=== PATIENT | female | born 1985 | race Caucasian/White ===

== ENCOUNTER → 2019-09-09 14:31 | Outpatient (CLI) | payer BC, SELFPAY ==
[2019-09-11 19:26] LABS: Estradiol 88.1 pg/mL (.)
[2019-09-13 19:00] LABS: Testosterone, Total, LC/MS 35.4 ng/dL (10.0-55.0)
[2019-09-14 17:18] LABS: Testosterone,Free 0.7 pg/mL (0.0-4.2)
== END ==
PROVIDERS: PCP Family Medicine; Visit Provider Obstetrics & Gynecology
DX: N95.1 Menopausal and female climacteric states (principal)
CPT/HCPCS: 36415; 82670; 84402; 84403

== ENCOUNTER → 2019-12-13 16:23 | Outpatient (CLI) | payer BC, SELFPAY ==
[2019-12-17 17:11] LABS: Testosterone, Total, LC/MS 53.8 ng/dL (10.0-55.0); Testosterone,Free 0.8 pg/mL (0.0-4.2)
== END ==
PROVIDERS: Visit Provider Obstetrics & Gynecology
DX: N95.1 Menopausal and female climacteric states (principal)
CPT/HCPCS: 36415; 82670; 84402; 84403

== ENCOUNTER → 2020-01-04 12:55 | Outpatient (CLI) | payer BC, SELFPAY | PROVIDERS: Visit Provider Obstetrics & Gynecology | DX: N95.0 Postmenopausal bleeding (principal) | CPT/HCPCS: 36415; 82670 ==

== ENCOUNTER → 2020-03-07 13:18 | Outpatient (CLI) | payer BC, SELFPAY ==
[2020-03-13 16:29] LABS: Testosterone, Total, LC/MS 88.5 ng/dL (10.0-55.0)
[2020-03-13 18:08] LABS: Testosterone,Free 2.1 pg/mL (0.0-4.2)
== END ==
PROVIDERS: Visit Provider Obstetrics & Gynecology
DX: N95.1 Menopausal and female climacteric states (principal)
CPT/HCPCS: 36415; 82670; 84402; 84403

== ENCOUNTER 2020-06-05 13:12 | Emergency (ER) | payer BC, SELFPAY ==
[2020-06-05 13:20] VITALS: BP 124/68; PULSE 71; RESP 20; TEMP 36.2; O2SAT 96; BMI 21.9
[2020-06-05 13:47] VITALS: BP 124/68; PULSE 71; RESP 20; TEMP 36.2; O2SAT 96
--- NOTE | 2020-06-05 13:55 | HMH.EDUTC ---
[facility] [place] Clinical Impression: Exposure to COVID-19 virus Disposition: Home, Self-Care Condition on Discharge: Good Instructions: DI for COVID-19 (Suspected or Confirmed ), Preventing the Spread of Coronavirus Discharge Instructions Additional Instructions: Drink plenty of fluids. Take tylenol for pain or fever. Return if you begin to have difficulty breathing. Follow up with your regular doctor. GO TO THE ER FOR ANY WORSENING SYMPTOMS Referrals: Edinson Lamas MD [Primary Care Provider] - Time of Disposition: 14:00 Medical Decision Making - Medical Records Medical records reviewed: No: I reviewed the patient's medical records. - Willie Inquiry Pt receiving controlled substance: No Vital Signs: 06/05/20 13:20 06/05/20 13:47 Temperature 97.1 F L 97.1 F L Temperature Source Oral Pulse Rate 71 Pulse Rate [Right Brachial] 71 Respiratory Rate 20 20 Blood Pressure 124/68 Blood Pressure [Right Arm] 124/68 Blood Pressure Mean [Right Arm] 86 Blood Pressure Source [Right Arm] Automatic Cuff Blood Pressure Position [Right Arm] Sitting 02 Sat by Pulse Oximetry 96 Oxygen Delivery Method Room Air Orders (Tests/Meds): ORDERS Category Date Time Status Covid-19 Nasal PCR Sendout [facility] Stat Lab 06/05/20 13:30 [place] [facility] [place] - General Stated complaint: covid test Time Seen by Provider: 06/05/20 13:59 Mode of Arrival: Ambulatory Source of Information: Patient Limitations: No Limitations Description of Symptoms (Recalled from Triage Doc. by RN): COVID TEST D/T SON BEING EXPOSED. DENIES SYMPTOMS HEENT Symptoms (Recalled from RN notes): No Resp Symptoms (Recalled from RN notes): No Skin Symptoms (Recalled from RN notes): No MS Symptoms (Recalled from RN notes): No Functional Status (Recalled from RN notes): WNL - History of Present Illness Provider Complaint: Her son has been exposed to covid-19. She has been around her son a lot. She has not had any symptoms so far. - Related Data Home Medications Medication Instructions Recorded Confirmed sertraline 100 mg tablet 100 mg PO DAILY 03/29/20 03/29/20 Previous Rx's Medication Instructions Recorded phenazopyridine 100 mg tablet 100 mg PO TID PRN 0 Days #6 tab 03/29/20 sulfamethoxazole 800 1 tab PO Q12H 10 Days #20 tab 03/29/20 mg-trimethoprim 160 mg tablet Allergies Allergy/AdvReac Type Severity Reaction Status Date / Time azithromycin Allergy Verified 03/29/20 13:08 - Worker's Comp Is this a Worker's Comp case?: No [facility] History - Hepatitis A Screen Drug use history?: No High risk sexual behaviors?: No History of sexually transmitted infection?: No Currently employed?: No Childcare worker?: No Do you have indoor plumbing?: Yes Do you have electricity?: Yes Attestation statement:: This patient has been screened for Hepatitis A risk factors. I have reviewed the patient's past medical history: Yes Medical History: Reports:: Urinary Tract Infection Other Surgeries: Yes: Hysterectomy-Total - Social History Smoking Status: Current every day smoker Tobacco Type: cigarettes (1/2 pack per day) Alcohol Intake: never Substance Use Type: denies use Occupational Status: employed Household Members: spouse, children Family Hx:: Non-contributory ROS Obtained: Yes All systems reviewed & no additional complaints - Constitutional Constitutional: Reports system reviewed and no additional complaints, except as docu - Eyes Eyes: Reports system reviewed and no additional complaints, except as docu - ENT Ears, Nose, Mouth, and Throat: Reports system reviewed and no additional complaints, except as docu - Cardiovascular Cardiovascular: Reports system reviewed and no additional complaints, except as docu - Respiratory Respiratory: Reports system reviewed and no additional complaints, except as docu - Gastrointestinal Gastrointestingal: Reports: system reviewed and no additional complai
[2020-06-06 10:32] LABS: Covid-19 Nasal PCR Sendout P&C Negative
== END 2020-06-05 14:10 | disposition home or self-care (01) ==
PROVIDERS: Emergency Provider Nurse Practitioner Family; PCP Family Medicine
DX: Z20.822 Contact with and (suspected) exposure to COVID-19 (principal)
CPT/HCPCS: 99202; G0463; U0004

== ENCOUNTER 2021-01-05 10:51 | Emergency (ER) | payer BC, SELFPAY ==
[2021-01-05 11:50] VITALS: BP 129/80; PULSE 68; RESP 18; TEMP 36.8; O2SAT 97; BMI 22.3
--- NOTE | 2021-01-05 12:06 | HMH.EDUTC ---
[facility] [place] Disposition Clinical Impression: Exposure to COVID-19 virus, Strep throat Sinusitis Qualifiers: Sinusitis location: unspecified location Chronicity: acute Recurrence: non-recurrent Qualified Code(s): J01.90 - Acute sinusitis, unspecified Disposition: Home, Self-Care Condition on Discharge: Good Instructions: DI for Strep Throat, DI for COVID-19 (Suspected or Confirmed ), Preventing the Spread of Coronavirus Discharge Instructions Additional Instructions: Drink plenty of fluids. Take tylenol or ibuprofen for pain or fever. Take the medications as directed. Follow up with your regular doctor. GO TO THE ER FOR ANY WORSENING SYMPTOMS Quarantine until you know the results of your covid-19 test. If it is positive, the health department should call you and give you further instructions about your length of Quarantine and other things. Notify your school or workplace of your results and follow their instructions regarding return to work/school. Prescriptions: Amoxicillin/Potassium Clav [Augmentin 875-125 Tablet] 1 tab PO Q12H 10 Days #20 tab Transmission Status: Received by [facility] #[id number] methylPREDNISolone [Medrol] 4 mg PO DIRECTED 6 Days #21 tab.ds.pk Transmission Status: Received by [facility] #[id number] Benzonatate [Tessalon Perle 100mg Cap] 100 mg PO TIDP PRN #30 cap PRN Reason: Cough Transmission Status: Received by [facility] #[id number] Referrals: Edinson Lamas MD [Primary Care Provider] - Forms: Work/School Release Time of Disposition: 12:40 Medical Decision Making - Medical Records Medical records reviewed: No: I reviewed the patient's medical records. - Willie Inquiry Pt receiving controlled substance: No Vital Signs: 01/05/21 11:50 01/05/21 12:35 Temperature 98.3 F 98.3 F Temperature Source Oral Pulse Rate 68 Pulse Rate [Right Brachial] 68 Respiratory Rate 18 18 Blood Pressure 129/80 Blood Pressure [Right Arm] 129/80 Blood Pressure Mean [Right Arm] 96 Blood Pressure Source [Right Arm] Automatic Cuff Blood Pressure Position [Right Arm] Sitting 02 Sat by Pulse Oximetry 97 Oxygen Delivery Method Room Air - Lab Data Lab results reviewed: Yes: I reviewed the patient's lab results. Lab Results 01/05/21 12:10: Strep [facility] Positive A 01/05/21 12:36: Strep Scn [facility] Positive [facility] [place] HPI - General Stated complaint: covid test Time Seen by Provider: 01/05/21 12:06 - History of Present Illness Provider Complaint: She c/o sore throat, chilling, low grade fever, cough, and sinus congestion for the past 2 days. She works at the school in the cafeteria. She has not been vaccinated against covid-19. She denies any shortness of breath. - Related Data Home Medications Medication Instructions Recorded Confirmed sertraline 100 mg tablet 100 mg PO DAILY 03/29/20 03/29/20 Previous Rx's Medication Instructions Recorded phenazopyridine 100 mg tablet 100 mg PO TID PRN 0 Days #6 tab 03/29/20 sulfamethoxazole 800 1 tab PO Q12H 10 Days #20 tab 03/29/20 mg-trimethoprim 160 mg tablet Amoxicillin/Potassium Clav 1 tab PO Q12H 10 Days #20 tab 01/05/21 [Augmentin 875-125 Tablet] Benzonatate [Tessalon Perle 100mg 100 mg PO TIDP PRN #30 cap 01/05/21 Cap] methylPREDNISolone [Medrol] 4 mg PO DIRECTED 6 Days #21 01/05/21 tab.ds.pk Allergies Allergy/AdvReac Type Severity Reaction Status Date / Time azithromycin Allergy Verified 03/29/20 13:08 [facility] History - Hepatitis A Screen Attestation statement:: This patient has been screened for Hepatitis A risk factors. I have reviewed the patient's past medical history: Yes Medical History: Reports:: Urinary Tract Infection Other Surgeries: Yes: Hysterectomy-Total - Social History Smoking Status: Current every day smoker Tobacco Type: cigarettes (1/2 pack per day) Alcohol Intake: never Substance Use Type: denies use Occupational Status:
[2021-01-05 12:24] LABS: UTC Strep Screen (Rapid) Positive (Negative)
[2021-01-05 12:35] VITALS: BP 129/80; PULSE 68; RESP 18; TEMP 36.8; O2SAT 97
[2021-01-05 19:05] LABS: UTC Strep Screen (Rapid) Positive (Negative)
== END 2021-01-05 12:43 | disposition home or self-care (01) ==
PROVIDERS: Emergency Provider Nurse Practitioner Family; PCP Family Medicine
DX: J01.90 Acute sinusitis, unspecified (principal); Z20.822 Contact with and (suspected) exposure to COVID-19; F17.210 Nicotine dependence, cigarettes, uncomplicated
CPT/HCPCS: 87880; 99203; G0463; U0003

== ENCOUNTER → 2021-02-07 13:53 | Outpatient (CLI) | payer BC, SELFPAY ==
[2021-02-07 14:20] LABS: Adenovirus,PCR Not Detected (NotDetected); Bordetella Pertussis Not Detected (NotDetected); Chlamydophila Pneumoniae, PCR Not Detected (NotDetected); Coronavirus 19, PCR Not Detected (NotDetected); Coronavirus 229E Not Detected (NotDetected); Coronavirus NL63 Not Detected (NotDetected); Coronavirus OC43 Not Detected (NotDetected); Coronovirus HKU1,PCR Not Detected (NotDetected); Human Metapneumovirus Not Detected (NotDetected); Influenza A, PCR Not Detected (NotDetected); Influenza AH1, 2009 Not Detected (NotDetected); Influenza AH1, PCR Not Detected (NotDetected); Influenza AH3,PCR Not Detected (NotDetected); Influenza B, PCR Not Detected (NotDetected); Mycoplasma Pneumoniae, PCR Not Detected (NotDetected); Parainfluenza 1, PCR Not Detected (NotDetected); Parainfluenza 2, PCR Not Detected (NotDetected); Parainfluenza 3, PCR Not Detected (NotDetected); Parainfluenza 4, PCR Not Detected (NotDetected); Respiratory Syncytial Virus Not Detected (NotDetected)
[2021-02-07 14:48] LABS: Basophils % 0.4 % (0.1-2.0); Eosinophils # 0.1 K/mm3 (0.0-0.4); Eosinophils % 1.3 % (0.1-12.0); Hematocrit 42.4 % (37.0-47.0); Hemoglobin 14.3 g/dL (12.2-16.2); Lymphocytes # 3.4 K/mm3 (0.7-4.5); Lymphocytes % 34.3 % (10-50); Mean Corpuscular HGB Conc 33.7 g/dL (31.8-35.4); Mean Corpuscular Hemoglobin 31.2 pg (27.0-31.2); Mean Corpuscular Volume 92.6 fl (81-99); Mean Platelet Volume 8.6 fl (7.4-10.4); Monocytes # 0.7 K/mm3 (0.1-1.0); Monocytes % 6.8 % (1.7-9.3); Neutrophils # 5.7 K/mm3 (1.8-7.8); Neutrophils % 57.3 % (37.0-80.0); Platelet Count 215 K/mm3 (142-424); Red Blood Count 4.58 M/mm3 (4.20-5.40); Red Cell Distribution Width 11.9 % (11.5-17.5); White Blood Count 9.9 K/mm3 (4.8-10.8)
[2021-02-07 20:40] LABS: Rhinovirus/Enterovirus Detected (NotDetected)
== END ==
PROVIDERS: PCP Nurse Practitioner Family; Visit Provider Nurse Practitioner Family
DX: Z20.822 Contact with and (suspected) exposure to COVID-19 (principal); B34.1 Enterovirus infection, unspecified
CPT/HCPCS: 36415; 85025; 87581; 87632; 87798; C9803; U0003; U0005

== ENCOUNTER → 2021-11-06 14:20 | Outpatient (CLI) | payer BC, SELFPAY ==
[2021-11-06 14:29] LABS: Basophils # 0.1 K/mm3 (0-0.2); Basophils % 1.1 % (0.1-2.0); Eosinophils # 0.1 K/mm3 (0.0-0.4); Eosinophils % 1.4 % (0.1-12.0); Hematocrit 47.2 % (37.0-47.0); Hemoglobin 14.9 g/dL (12.2-16.2); Lymphocytes # 2.6 K/mm3 (0.7-4.5); Lymphocytes % 27.2 % (10-50); Mean Corpuscular HGB Conc 31.5 g/dL (31.8-35.4); Mean Corpuscular Hemoglobin 30.4 pg (27.0-31.2); Mean Corpuscular Volume 96.6 fl (81-99); Monocytes # 0.6 K/mm3 (0.1-1.0); Monocytes % 5.7 % (1.7-9.3); Neutrophils # 6.3 K/mm3 (1.8-7.8); Neutrophils % 64.6 % (37.0-80.0); Platelet Count 206 K/mm3 (142-424); Red Blood Count 4.89 M/mm3 (4.20-5.40); Red Cell Distribution Width 12.7 % (11.5-17.5); White Blood Count 9.7 K/mm3 (4.8-10.8)
[2021-11-06 15:08] LABS: Alanine Aminotransferase 13 U/L (12-78); Albumin Level 3.9 g/dl (3.5-5.0); Albumin/Globulin Ratio 1.3 (1.1-1.8); Alkaline Phosphatase 81 U/L (38-126); Anion Gap 9.2 mEq/L (5-15); Aspartate Amino Transferase 20 U/L (14-36); Blood Urea Nitrogen 15 mg/dl (7-17); Calcium 9.1 mg/dl (8.4-10.2); Carbon Dioxide 28 mmol/L (22.0-30.0); Chloride 107 mmol/L (98-107); Chol/HDL Ratio 5.8 (1-3.5); Cholesterol 237 mg/dl (140-200); Estimated Glomerular Filt Rate 95 ml/min (>60); GFR (African American) 115 ML/MIN (>60); Glucose 97 mg/dl (74-100); HDL Cholesterol 41 mg/dl (40-60); Potassium 4.2 mmoL/L (3.5-5.1); Sodium 140 mmol/L (136-145); Total Protein,Serum 6.9 g/dl (6.3-8.2); Triglycerides 123 mg/dl (30-150); VLDL Cholesterol 25 mg/dL (0-40)
[2021-11-06 15:17] LABS: Bilirubin,Total 0.1 mg/dl (0.2-1.3)
[2021-11-06 15:19] LABS: Direct LDL Cholesterol 160.52 mg/dL (100-129)
[2021-11-06 15:23] LABS: 25-OH Vitamin D, Total 27.7 ng/mL (30-100)
[2021-11-06 15:24] LABS: T4 (Thyroxine) 10.5 ug/dl (5.53-11.0)
== END ==
PROVIDERS: PCP Nurse Practitioner Family; Visit Provider Nurse Practitioner Family
DX: E78.5 Hyperlipidemia, unspecified (principal); E55.9 Vitamin D deficiency, unspecified; R53.81 Other malaise; R53.83 Other fatigue; Z79.899 Other long term (current) drug therapy
CPT/HCPCS: 80053; 80061; 82306; 84436; 84443; 85025

== ENCOUNTER → 2022-01-18 11:27 | Outpatient (CLI) | payer BC, SELFPAY ==
[2022-01-20 08:47] LABS: Estradiol 45.4 pg/mL (.)
[2022-01-20 09:19] LABS: FSH 28.2 mIU/mL (.)
[2022-01-23 22:07] LABS: Testosterone,Free 1.4 pg/mL (0.0-4.2)
== END ==
PROVIDERS: Visit Provider Obstetrics & Gynecology
DX: N95.1 Menopausal and female climacteric states (principal); Z79.890 Hormone replacement therapy
CPT/HCPCS: 36415; 82670; 83001; 84402; 84403

== ENCOUNTER 2024-02-03 13:47 | Emergency (ER) | payer BC, SELFPAY ==
[2024-02-03 14:28] VITALS: BP 153/90; PULSE 88; RESP 16; TEMP 36.7; O2SAT 98; BMI 26.5
--- NOTE | 2024-02-03 14:34 | ED_ITS ---
Discharge Plan Disposition Patient Disposition: Home, Self-Care Condition: Good Prescriptions Prescriptions: New benzonatate 100 mg capsule 100 mg PO TID PRN (Reason: cough) Qty: 30 0RF methylprednisolone [Medrol (Cruz)] 4 mg tablets,dose pack See Rx Instructions .Route .COMPLEX 6 Days Qty: 21 0RF Rx Instructions: taper pack; amoxicillin-pot clavulanate 875-125 mg Tablet 1 tab PO Q12H Qty: 20 0RF guaifenesin [Mucinex] 600 mg tablet extended release 12hr 600 mg PO BID PRN (Reason: cough) Qty: 20 0RF methocarbamol 500 mg tablet 500 mg PO TID PRN (Reason: muscle spasm) Qty: 12 0RF No Action Vraylar 1.5 mg capsule 1.5 mg PO DAILY Qty: 30 2RF cholecalciferol (vitamin D3) 50 mcg (2,000 unit) capsule 50 mcg PO DAILY Qty: 30 4RF cholecalciferol (vitamin D3) 1,250 mcg (50,000 unit) tablet 1,250 mcg PO WEEKLY Qty: 7 2RF Referrals Follow up/Referrals: Provider,Referral, MD [Primary Care Provider] - See instructions Activity Restrictions/Add. Instructions Additional Instructions/Restrictions: *Monitor Temp, Over the counter Motrin or Tylenol as directed/as needed Tylenol every 4 hours and Motrin every 6 hours (as long as your family doctor has told you that you can take it) for fever or pain. and straight to ER if unable to lower temp less than 101.0 after medication given *Warm salt water gargles may help to soothe the throat *Throat Lozenges? *Warm fluids like tea with honey may help to soothe the throat? *Sleep elevated *Humidifier/Vaporizer *Take medication as prescribed Follow up IMMEDIATELY for new or worsening symptoms or no Noticeable improvement over the next 48-72 hours. 911 for difficulty breathing or swallowing Clinical Impressions Clinical Impression: Sinusitis, Muscle spasm Stand Alone Forms Stand Alone Forms: Work/School Release Instructions Patient Instructions: Sinusitis, DI for Sinusitis Print Language Print Language: Serbian Discharge ED Provider: Yokasta Head [facility] [place] HPI General Stated complaint: cough, lower back pain Mode of Arrival: Ambulatory Source of Information: Patient Limitations: No Limitations Time Seen by Provider: 02/03/24 14:34 Description of Symptoms (Recalled from Triage Doc. by RN): Reports sinus congestion, chest congestion and cough for 2 weeks. HEENT Symptoms (Recalled from RN notes): Yes Resp Symptoms (Recalled from RN notes): No Skin Symptoms (Recalled from RN notes): No MS Symptoms (Recalled from RN notes): No Functional Status (Recalled from RN notes): wnl History of Present Illness Provider Complaint: Patient states that she has been sick for about 2 weeks states that she has been having sinus congestion and pressure and feels like it has moved down into her chest statesa that she has taken several OTC medications but nothing has helped States she is also not sure if she pulled something in her back coughing or if she may have a UTI but she is having achy like pain in her lower back worse with cough/movement Related Data Previous Rx's ?Medication ?Instructions ?Recorded cariprazine 1.5 mg capsule 1.5 mg PO DAILY #30 caps 11/06/21 (Vraylar) cholecalciferol (vitamin D3) 1,250 1,250 mcg PO WEEKLY #7 tabs 11/08/21 mcg (50,000 unit) tablet cholecalciferol (vitamin D3) 50 50 mcg PO DAILY #30 caps 11/08/21 mcg (2,000 unit) capsule amoxicillin 875 mg-potassium 1 tab PO Q12H #20 tabs 02/03/24 clavulanate 125 mg tablet benzonatate 100 mg capsule 100 mg PO TID PRN cough #30 caps 02/03/24 guaifenesin 600 mg tablet, 600 mg PO BID PRN cough #20 tabs 02/03/24 extended release 12 hr (Mucinex) methocarbamol 500 mg tablet 500 mg PO TID PRN muscle spasm #12 02/03/24 tabs methylprednisolone 4 mg tablets in See Rx Instructions .Route 02/03/24 a dose pack (Medrol (Cruz)) .COMPLEX 6 days #21 tabs Allergies Allergy/AdvReac Type Severity Reaction Status Date / Time azithromycin Allergy Verified 11/06/21 09:54 Worker's Comp Is this a Worker's Comp case?: No PFS PFS Disclaimer: The information contained in this section may have been updated after the patient was seen, as this information can be updated by other users. Social History Smoking Status: Current every day smoker tobacco type: cigarettes alcohol intake: never substance use type: denies use current occupational status: employed Travel in the last 8 weeks: None household members: spouse and children ROS Obtained: Yes All systems reviewed & no additional complaints except as documented and Yes Systems reviewed as appropriate & no additional complaints except as documented Eyes Eyes: Reports system reviewed and no additional complaints, except as documented and Reports as per HPI ENT Ears, Nose, Mouth, and Throat: Reports system reviewed and no additional complaints, except as documented, Reports as per HPI, Reports sinus pain and Reports sinus pressure Cardiovascular Cardiovascular: Reports system reviewed and no additional complaints, except as documented and Reports as per HPI Respiratory Respiratory: Reports system reviewed and no additional complaints, except as documented, Reports as per HPI, Reports chest congestion and Reports cough Musculoskeletal Musculoskeletal: Reports system reviewed and no additional complaints, except as documented, Reports as per HPI and Reports back pain (reports spasm like pain in lower back worse with movement and cough) Comments: Denies loss of control of bowel or bladder Physical Exam General General appearance: alert and in no apparent distress ENT ENT exam: Present mucous membranes moist Expanded ENT Exam Nose exam: Present sinus tenderness Throat exam: Present other (PND noted) Respiratory Respiratory exam: Present normal lung sounds bilaterally; Absent respiratory distress or wheezes Cardiovascular Cardiovascular exam: Present regular rate, normal rhythm and normal heart sounds Back Exam Back exam: Present muscle spasm Back 1 view image: 2 1. reports spasm like pain worse with coughing and movement, denies radiation of pain and denies loss of control of bowel or bladder Neurological Exam Neurological exam: Present alert, oriented X3 and normal gait Medical Decision Making Medical Records Screening: Per USPSTF and CDC recommendations, given the prevalence of disease in our region, it is our hospital?s policy to screen for HIV and viral Hepatitis for all patients aged 18 and over and those with ongoing risk factors. Willie Inquiry Pt receiving controlled substance: No Willie was queried for this patient: No Vital Signs: 02/03/24 14:28 Temperature 98.0 F Temperature Source Oral Pulse Rate [Radial] 88 Respiratory Rate 16 Blood Pressure [Right Arm] 153/90 H Blood Pressure Mean [Right Arm] 111 Blood Pressure Source [Right Arm] Automatic Cuff Blood Pressure Position [Right Arm] Sitting 02 Sat by Pulse Oximetry 98 Oxygen Delivery Method Room Air Lab Data Lab results reviewed: Yes I reviewed the patient's lab results.
[2024-02-03 14:49] LABS: Apearance,Urine Clear (Clear); Color,Urine Yellow (Yellow); PH,Urine 5.5 (5.0-8.5)
[2024-02-03 14:50] LABS: Bilirubin,Urine Negative (Negative); Blood, Urine Negative (Negative); Glucose,Urine (UA) Negative (Negative); Ketones,Urine Negative (Negative); Protein,Urine Negative (Negative); UTC Leukocyte Esterase,Urine Negative (Negative); UTC Nitrate,Urine Negative (Negative); Urobilinogen,Urine 0.2 EU/dl (0.2)
[2024-02-03 15:20] VITALS: BP 153/90; PULSE 88; RESP 16; TEMP 36.7; O2SAT 98
== END 2024-02-03 15:20 | disposition home or self-care (01) ==
PROVIDERS: Emergency Provider Nurse Practitioner
DX: J01.90 Acute sinusitis, unspecified (principal); R05.9 Cough, unspecified; M62.830 Muscle spasm of back
CPT/HCPCS: 81003; 99212; 99214; G0463

== ENCOUNTER 2024-03-16 16:49 | Outpatient (CLI) | payer BC, SELFPAY ==
[2024-03-16 16:33] LABS: Microscopic, Urine URINE MICROSCOPIC (MICROSCOPIC)
[2024-03-16 17:12] LABS: Appearance,Urine CLEAR (Clear); Bilirubin,Urine Negative (Negative); Blood, Urine Negative (Negative); Color,Urine YELLOW (Yellow); Glucose,Urine (UA) Negative (Negative); Ketones,Urine Negative (Negative); Leukocyte Esterase,Urine Negative (Negative); Nitrate,Urine Negative (Negative); PH,Urine 6.5 (5.0-8.5); Protein,Urine Negative (Negative); Specific Gravity, Urine 1.025 (1.005-1.030); Urobilinogen,Urine 0.2 EU/dl (0.2)
[2024-03-16 17:14] LABS: Alanine Aminotransferase 14 U/L (12-78); Albumin Level 4.2 g/dl (3.5-5.0); Albumin/Globulin Ratio 1.7 (1.1-1.8); Alkaline Phosphatase 80 U/L (38-126); Anion Gap 11.6 mEq/L (5-15); Aspartate Amino Transferase 20 U/L (14-36); Bilirubin,Total 0.5 mg/dl (0.2-1.3); Blood Urea Nitrogen 12 mg/dl (7-17); Calcium 8.9 mg/dl (8.4-10.2); Carbon Dioxide 27 mmol/L (22.0-30.0); Chloride 106 mmol/L (98-107); Chol/HDL Ratio 5.2 (1-3.5); Cholesterol 245 mg/dl (140-200); Estimated Glomerular Filt Rate 93 ml/min (>60); GFR (African American) 113 ML/MIN (>60); Globulin 2.5 g/dL (1.3-3.2); Glucose 69 mg/dl (74-100); HDL Cholesterol 47 mg/dl (40-60); Potassium 4.6 mmoL/L (3.5-5.1); Sodium 140 mmol/L (136-145); Total Protein,Serum 6.7 g/dl (6.3-8.2); Triglycerides 122 mg/dl (30-150); VLDL Cholesterol 24 mg/dL (0-40)
[2024-03-16 17:26] LABS: Direct LDL Cholesterol 195.95 mg/dL (100-129)
[2024-03-16 17:30] LABS: Basophils # 0.1 K/mm3 (0-0.2); Basophils % 0.7 % (0.1-2.0); Eosinophils # 0.1 K/mm3 (0.0-0.4); Eosinophils % 0.9 % (0.1-12.0); Hematocrit 44.2 % (37.0-47.0); Hemoglobin 15.5 g/dL (12.2-16.2); Lymphocytes # 3.4 K/mm3 (0.7-4.5); Lymphocytes % 26.8 % (10-50); Mean Corpuscular Hemoglobin 31.7 pg (27.0-31.2); Mean Corpuscular Volume 90.6 fl (81-99); Mean Platelet Volume 9.8 fl (7.4-10.4); Monocytes # 0.8 K/mm3 (0.1-1.0); Monocytes % 6.2 % (1.7-9.3); Neutrophils # 8.3 K/mm3 (1.8-7.8); Neutrophils % 65.4 % (37.0-80.0); Platelet Count 263 K/mm3 (142-424); Red Blood Count 4.88 M/mm3 (4.20-5.40); Red Cell Distribution Width 12.8 % (11.5-17.5); White Blood Count 12.6 K/mm3 (4.8-10.8)
[2024-03-16 17:32] LABS: 25-OH Vitamin D, Total 29.8 ng/mL (30-100)
[2024-03-16 17:33] LABS: Free T4 (Free Thyroxine) 1.36 ng/dl (0.78-2.19)
[2024-03-16 18:05] LABS: Vitamin B12 289 pg/mL (239-931)
[2024-03-16 18:41] LABS: Iron 77 ug/dL (37-170)
[2024-03-16 18:51] LABS: Total Iron Binding Capacity 311 ug/dL (265-497)
[2024-03-16 18:57] LABS: Bacteria,Urine 4+ /lpf; Squamous Epithelial Cell,Urine 20-50 #/hpf (0-5)
[2024-03-16 19:16] LABS: Ferritin 111 ng/ml (6.24-137)
[2024-03-16 20:30] LABS: Hemoglobin A1C 5.1 % (4.0-6.0)
[2024-03-16 22:20] LABS: HIV (1&2) Antibody Rapid NONREACTIVE (NONREACTIVE)
[2024-03-17 09:39] LABS: HCV Ab Non Reactive (Non Reactive)
[2024-03-17 11:15] LABS: Thyroid Peroxidase Antibodies 15 IU/mL (0-34)
== END 2024-03-16 23:59 | disposition home or self-care (01) ==
LOC: LAB.DROPOF 16:50
PROVIDERS: PCP Nurse Practitioner Family; Visit Provider Nurse Practitioner Family
DX: R53.83 Other fatigue (principal); Z13.1 Encounter for screening for diabetes mellitus; F41.9 Anxiety disorder, unspecified; F32.A Depression, unspecified; R13.10 Dysphagia, unspecified; Z13.220 Encounter for screening for lipoid disorders; E55.9 Vitamin D deficiency, unspecified; Z11.59 Encounter for screening for other viral diseases; Z11.4 Encounter for screening for human immunodeficiency virus [HIV]
CPT/HCPCS: 80050; 80053; 80061; 81001; 82306; 82607; 82728; 83036; 83540; 83550; 84439; 84443; 85025; 86376; 86803; 87086; 87389

== ENCOUNTER 2024-04-21 10:49 | Outpatient (CLI) | payer BC, SELFPAY ==
--- NOTE | 2024-04-21 10:52 | XR_ITS ---
FINAL REPORT CLINICAL HISTORY: right 3rd toe injury FINDINGS: RIGHT TOES 3 views of the right toes were obtained. There is no acute fracture or dislocation. The joint spaces are intact. There is no soft tissue abnormality. IMPRESSION: No acute fracture. Reviewed, Interpreted and Dictated by Heber Olivier III, MD Transcribed by Vania Altamirano Authenticated and [facility]
== END 2024-04-21 23:59 | disposition home or self-care (01) ==
LOC: RAD 10:50
PROVIDERS: PCP Nurse Practitioner Family; Visit Provider Nurse Practitioner Family
DX: M79.671 Pain in right foot (principal); S99.921A Unspecified injury of right foot, initial encounter
CPT/HCPCS: 73660

== ENCOUNTER 2024-06-28 15:12 | Outpatient (CLI) | payer BC, SELFPAY ==
[2024-06-28 16:38] LABS: Coronavirus 19, PCR Not Detected (NotDetected); Human Rhinovirus Not Detected (NotDetected); Influenza B, PCR Not Detected (NotDetected); Respiratory Syncytial Virus Not Detected (NotDetected)
[2024-06-28 21:37] LABS: Influenza A, PCR Detected (NotDetected)
== END 2024-06-28 23:59 | disposition home or self-care (01) ==
LOC: LAB.DROPOF 06-30 10:58
PROVIDERS: PCP Nurse Practitioner Family; Visit Provider Nurse Practitioner Family
DX: R53.83 Other fatigue (principal); R52 Pain, unspecified; R51.9 Headache, unspecified; R05.9 Cough, unspecified
CPT/HCPCS: 87631

== ENCOUNTER 2024-08-23 13:46 | Outpatient (CLI) | payer BC, SELFPAY ==
[2024-08-24 10:53] LABS: Estradiol 34.9 pg/mL (.); FSH 24.1 mIU/mL (.)
[2024-08-26 20:51] LABS: Testosterone,Free 0.3 pg/mL (0.0-4.2)
[2024-08-29 16:31] LABS: Testosterone, Total, LC/MS 11 ng/dL (.)
== END 2024-08-23 23:59 | disposition home or self-care (01) ==
LOC: LAB 13:48
PROVIDERS: PCP Nurse Practitioner Family; Visit Provider Obstetrics & Gynecology
DX: N95.1 Menopausal and female climacteric states (principal)
CPT/HCPCS: 82670; 83001; 84402; 84403